=== PATIENT | female | born 1985 | race Caucasian/White ===

== ENCOUNTER 2017-02-15 09:09 | Emergency (ER) | payer MEDICAID ==
[~2017-02-15] VITALS: Ht 160 cm; Wt 75.0 kg
[2017-02-15 09:22] VITALS: BP 135/88
[2017-02-15] MEDS ORDERED: MUPIROCIN CALCIUM 2% 22 GM OINTMENT TP ONE (09:30)
[2017-02-15] MEDS ORDERED: PERTUSS(ACELL),DIPH,TET VAC/PF 0.5 ML VIAL IM ONE (09:30)
== END 2017-02-15 09:53 | disposition home or self-care (01) ==
LOC: EMS 09:13
DX: L03.031 Cellulitis of right toe (principal); G40.909 Epilepsy, unspecified, not intractable, without status epilepticus
CPT/HCPCS: 90471; 90715; 96372; 99283